=== PATIENT | female | born 1945 | race Two or more races ===

== ENCOUNTER 2024-05-03 20:26 | Emergency (ER) | payer MEDICARE, MEDICAID, SELFPAY ==
[2024-05-03 21:01] VITALS: BP 176/77; PULSE 77; RESP 18; TEMP 37.1; O2SAT 97
--- NOTE | 2024-05-03 21:16 | XR_ITS ---
May 03, 20242119 hrs. Indications: Onset chest pain today Findings: Normal heart size Mildly prominent central pulmonary arteries No pneumonia or pulmonary edema The osseous structures are intact Impression: Suspicious for pulmonary artery hypertension No pneumonia or pulmonary edema
--- NOTE | 2024-05-03 21:16 | XR_ITS ---
Examination: CT brain head without contrast. 2-D sagittal coronal reconstructions Date and time of exam:May 03, 2024 2147 hrs. Indications: Headache dizziness today CTDI: vol (mGy):48.3 DLP: (mGycm):1002 Technique: Multiple CT axial sections of the brain have been obtained, 5 mm slice thickness. Contrast has not been administered. 2-D sagittal, coronal reconstructions have been obtained Low dose protocols were performed. One or more of the following dose reduction techniques were used; automated exposure control, adjustment of the mA and/or KV according to patient size, use of iterative reconstruction technique. Findings: No significant ventricular enlargement. Intra-axial or extra-axial hemorrhage density is not seen. No mass effect or midline shift Basal cisterns are not remarkable. Fourth ventricle is midline. Cranial vault intact. Mild chronic pansinusitis Impression: Negative for acute hemorrhage, mass effect or midline shift
--- NOTE | 2024-05-03 21:17 | PD.EDRME ---
Rapid Medical Screening Exam RME Arrival date/time: 05/03/24 20:26 78-year-old female past medical history of hypertension presents emergency department complaining of dizziness and cough. Chief Complaint: Dizziness Time Seen by Provider: 05/03/24 21:07 Vital signs: Vital Signs Temperature 98.7 F 05/03/24 21:01 Pulse Rate 77 05/03/24 21:01 Respiratory Rate 18 05/03/24 21:01 Blood Pressure 176/77 H 05/03/24 21:01 Pulse Oximetry (%) 97 05/03/24 21:01 Oxygen Delivery Method Room Air 05/03/24 21:01 Vital signs reviewed by provider: Yes
[2024-05-03 21:49] LABS: Basophils % (Auto) 0 % (0-2.5); Eosinophils # (Auto) 0.2 Thou/mm3 (0.0-0.5); Eosinophils % (Auto) 2 % (0-10); Hematocrit 37.4 % (36.0-46.0); Hemoglobin 12.7 g/dL (12.0-16.0); Immature Granulocytes % (Auto) 0 % (0-0); Immature Granulocytes Auto 0.04 Thou/mm3 (0.00-0.00); Lymphocytes # (Auto) 1.6 Thou/mm3 (1.0-4.8); Lymphocytes % (Auto) 16 % (10-50); Mean Corpuscular Hemoglobin 28.9 pg (25.0-35.0); Mean Corpuscular Volume 85 fL (80-100); Monocytes # (Auto) 0.9 Thou/mm3 (0.0-0.8); Monocytes % (Auto) 9 % (0-12); Neutrophils # (Auto) 7.2 Thou/mm3 (1.8-7.7); Neutrophils % (Auto) 72 % (37-80); Nucleated Red Blood Cell % 0 /100 WBC (0); Platelet Count 264 Thou/mm3 (140-440); White Blood Count 10.1 Thou/mm3 (3.6-11.0)
[2024-05-03 22:02] LABS: B-Type Natriuretic Peptide 43 pg/mL (0-100)
[2024-05-03 22:03] LABS: Alanine Aminotransferase 17 U/L (10-49); Albumin, Serum 4.5 gm/dL (3.4-4.8); Albumin/Globulin Ratio 1.6 (1.2-2.2); Alkaline Phosphatase 119 U/L (46-116); Anion Gap 7 (7-16); Aspartate Amino Transferase 28 U/L (0-34); BUN/Creatinine Ratio 15 Ratio (12-20); Bilirubin,Total 0.7 mg/dL (0.3-1.2); Blood Urea Nitrogen 17 mg/dL (9-23); Calcium 9.7 mg/dL (8.3-10.6); Calcium (Corrected) 9.7 mg/dL (8.5-10.1); Carbon Dioxide 26.4 mMol/L (20.0-31.0); Chloride 96 mMol/L (98-107); Creatinine (Component) 1.1 mg/dL (0.6-1.3); Globulin 2.9 gm/dL (2.3-3.5); Glucose 99 mg/dL (74-106); Magnesium 1.5 mg/dL (1.6-2.6); Osmolality,Calculated 260 (275-295); Potassium 4.5 mMol/L (3.4-5.1); Sodium 129 mMol/L (136-145); Total Protein 7.4 gm/dL (5.7-8.2); eGFR 51 See Note
--- NOTE | 2024-05-03 22:51 | EDNOTE_ITS ---
ED Dizzyness RME/HPI General Chief Complaint: Dizziness Stated Complaint: BLOOD PRESSURE HIGH, DIZZY, H/A Time Seen by Provider: 05/03/24 21:07 Arrival date/time: 05/03/24 20:26 RME / HPI RME / HPI Narrative: 05/03/24 20:26 78-year-old female past medical history of hypertension presents emergency department complaining of dizziness and cough. -------- Dr. Miranda?s Main ED Evaluation: 78yo female with a history of HTN BIB her daughter presents to the ED for a chief complaint of elevated blood pressure. Daughter states she checked the patient's blood pressure and was noted to be 220/90 and was concerned, so she brought her in for evaluation. Patient states she initially had a headache, but reports it has since resolved. Patient denies any chest pain, shortness of breath, N/V or any other associated symptoms. Related Data Home Medications ?Medication ?Instructions ?Recorded ?Confirmed cholesterol PO QDAY ##0 10/01/14 lisinopril 20 mg tablet 20 mg PO QDAY #0 tabs Previous Rx's ?Medication ?Instructions ?Recorded HCTZ/TRIAMTERENE (DYAZIDE 25/37.5) 1 cap PO QAM #30 ca ps 10/01/14 aspirin 81 mg chewable tablet 81 mg PO QDAY ##100 09/21 04/07 metoprolol succinate 25 mg 25 mg PO QDAY ##30 10/01/14 tablet,extended release 24 hr (Toprol XL) nitroglycerin 0.4 mg sublingual 0.4 mg SL Q5MIN PRN CH EST PAIN 10/01/14 tablet (Nitrostat) #100 tabs magnesium oxide 400 mg (241.3 mg 400 mg PO BID 3 days #6 tabs 05/04/24 magnesium) tablet Allergies Allergy/AdvReac Type Severity Reaction Status Date / Time Penicillins Allergy Unknown Unverified 09/30/14 05:05 Review of Systems Review of Systems Systems Reviewed: All systems reviewed, normal except as documented Past Medical History Social History SMOKING STATUS: Never smoker ED Exam Narrative Physical exam: GENERAL APPEARANCE: alert and oriented x 4, well-developed, well-nourished, no acute distress VITALS: All vitals were reviewed and the pulse ox is 97% on room air, which is normal according to my interpretation. HEENT: Normocephalic, atraumatic; pupils equal, round, reactive to light; EOMI; mucous membranes pink, moist; oropharynx clear NECK: Supple LUNGS: CTABL; no wheezes, no rales, no rhonchi HEART: Regular rate, regular rhythm; normal S1, S2; no murmurs ABDOMEN: non distended; normal BS; soft, no tenderness, no guarding, no rebound; no masses, no organomegaly, no hernia BACK: no CVA tenderness EXTREMITIES: atraumatic; no edema NEUROLOGIC: awake; alert and oriented x4; cranial nerves II-XII grossly intact; no focal sensory or motor deficits PSYCHIATRIC: appropriate mood and affect SKIN: warm, dry, normal color; no rashes Course Course Course Narrative: CXR is ordered for determining the etiology of elevated blood pressure. Quality Measures none Orders Category Date Time Status EKG (ED ONLY) *Do not use* NOW Care 05/03/24 21:[address] head/brain wo con Stat Exams 05/03/24 21:16 Completed EKG (ED Only) Stat Exams 05/03/24 21:16 Ordered XR chest 2V Stat Exams 05/03/24 21:16 Completed BNP [B-Type Natriuretic Peptide] Stat Lab 05/03/24 21:25 Completed CBC Stat Lab 05/03/24 21:25 Completed Comprehensive Metabolic Panel Stat Lab 05/03/24 21:25 Completed Mag [Magnesium] Stat Lab 05/03/24 21:25 Completed Troponin I Stat Lab 05/03/24 21:25 Completed Vital Signs Vital signs: Vital Signs Temperature 98.7 F 05/03/24 21:01 Pulse Rate 77 05/03/24 21:01 Respiratory Rate 18 05/03/24 21:01 Blood Pressure 176/77 H 05/03/24 21:01 Pulse Oximetry (%) 97 05/03/24 21:01 Oxygen Delivery Method Room Air 05/03/24 21:01 Dizziness MDM Narrative MDM Narrative:: Scribe Attestation: 05/03/24 Donna Lopez am scribing for and in the presence of Dr. Miranda. Patient data External records reviewed:: [facility] previous records (Per chart review, patient has no previous ED visits or admissions to this facility.) Clinical information provided by:: patient Social determinants that could affect healthcare access:: none Patient has the following chronic illnesses:: HTN How is presenting disease/condition affected by chronic disease/condition?: caused by Evaluation data The following diagnostics were reviewed and interpreted by me:: lab results Lab and/or radiology exams considered but not ordered:: none Interpretation Summary: Bedside COVID and Influenza are negative, CBC is normal, troponin is normal, BNP is normal, according to my interpretation. EKG done at 2116, NSR, rate of 72, normal axis, no ectopy, no acute ischemia, according to my interpretation. ------ [facility] Report Signed Patient: SUNITA LITTLEJOHN LoggedIn. Record#: [id number] Birthdate: 1945 Age/Sex: 78 / F Location: [facility] Attending Dr: Ordering Physician: Lucrecia ZAMUDIO)Ab Date of Service: 05/03/24 Procedure(s): XR chest 2V Accession Number(s): [id number] cc: Josue Perry MD; Lucrecia ZAMUDIO)Ab~ May 03, 2024 2120 hrs. Indications: Onset chest pain today Findings: Normal heart size Mildly prominent central pulmonary arteries No pneumonia or pulmonary edema The osseous structures are intact Impression: Suspicious for pulmonary artery hypertension No pneumonia or pulmonary edema Dictated By: Josue Perry MD Signed By: <Electronically signed by Josue Perry MD in [place]> 05/03/24 2141 [facility] Report Signed Patient: SUNITA LITTLEJOHN LoggedIn. Record#: [id number] Birthdate: 1945 Age/Sex: 78 / F Location: [facility] Attending Dr: Ordering Physician: Ab Jones (FNP) Date of Service: 05/03/24 Procedure(s): CT head/brain wo con Accession Number(s): [id number] cc: Josue Perry MD; NO PRIMARY/FAMILY,PHYSICIAN; Lucrecia ZAMUDIO), Ab SCHNEIDER~ Examination: CT brain head without contrast. 2-D sagittal coronal reconstructions Date and time of exam:May 03, 2024 2147 hrs. Indications: Headache dizziness today CTDI: vol (mGy):48.3 DLP: (mGycm):1002 Technique: Multiple CT axial sections of the brain have been obtained, 5 mm slice thickness. Contrast has not been administered. 2-D sagittal, coronal reconstructions have been obtained Low dose protocols were performed. One or more of the following dose reduction techniques were used; automated exposure control, adjustment of the mA and/or KV according to patient size, use of iterative reconstruction technique. Findings: No significant ventricular enlargement. Intra-axial or extra-axial hemorrhage density is not seen. No mass effect or midline shift Basal cisterns are not remarkable. Fourth ventricle is midline. Cranial vault intact. Mild chronic pansinusitis Impression: Negative for acute hemorrhage, mass effect or midline shift Dictated By: Josue Perry MD Signed By: <Electronically signed by Josue Perry MD in [place]> 05/03/24 2208 Medications / Prescriptions Medications or Prescriptions considered but not ordered:: none Medication administrations:: see above Consultations Consultation(s) initiated? (list below): No Diagnosis Dizziness Differential Diagnosis: other (hypertensive headache, subarachnoid bleed, ICH, tension headache, essential hypertension, hypertensive urgency) Most likely diagnosis given after review of the tests above:: see below Admission Indicated Admission indicated?: not indicated Admission Request Was there a request for admission?: No Disposition Plan Disposition Plan: Discharge Discharge Attestation Discharge Attestation: The patient and all family members were given an opportunity to ask questions and understood the discharge instructions. Discharge instructions specifically effects, indications for sooner follow up or return to the emergency department, and the expected course of current diagnosis. Patient condition: Stable Discharge Plan Plan Patient Disposition: HOME (Self Care) Disposition Comment: Stable for discharge Patient condition on transfer: Stable Prescriptions/Referrals Prescriptions/Med Rec: New magnesium oxide 400 mg (241.3 mg magnesium) tablet 400 mg PO BID 3 Days Qty: 6 0RF No Action lisinopril 20 MG tablet 20 mg PO QDAY Qty: 0 cholesterol PO QDAY Qty: 0 nitroglycerin [Nitrostat] 0.4 MG tablet, sublingual 0.4 mg SL Q5MIN PRN (Reason: CHEST PAIN) Qty: 100 0RF aspirin 81 MG tablet,chewable 81 mg PO QDAY Qty: 100 0RF metoprolol succinate [Toprol XL] 25 MG tablet extended release 24 hr 25 mg PO QDAY Qty: 30 0RF HCTZ/TRIAMTERENE (DYAZIDE 25/37.5) 1 CAP capsule 1 cap PO QAM Qty: 30 0RF Referrals: [facility], [facility] [Outside] - In 1 week Problem List Clinical Impression: Hypertension, Headache due to hypertension Patient/Caregiver Discharge Instructions Discharge Activity: activity as tolerated Education Materials: Controlling High Blood Pressure, Discharge Instructions for ..., Eating Heart-Healthy Foods, Blood Pressure Check Steps Additional Instructions: The patient follow-up with your primary care doctor within the next several days to discuss your high blood pressure medications. You may need an adjustment or change in the medication. Please remember to return to the emergency department if you have any worsening or any further medical problems we will help you. Your magnesium level is a little bit low. There is 1 medication waiting for you at your pharmacy. This is magnesium oxide. Please take 1 tab twice a day for the next 3 days Print Language: Pakistani Stand Alone Forms: [employer] Award Info., Patient Portal Info Letter
[2024-05-03 23:10] VITALS: BP 162/74; PULSE 71; RESP 19; TEMP 36.7; O2SAT 100
[2024-05-03 23:12] VITALS: BMI 35.9
--- NOTE | 2024-05-03 23:20 | PC.NURSE ---
Pt. presents with c/o HTN. Daughter in law states she had a systolic of 220 at home but now systolic is 162/74. Pt. states a CABRERA 8/10 and dizziness and states that she has had high blood pressure before and has the same symptoms today. Pt is taking Hydrochlorothiazide, Atorvastatin and Losartan at home and has been on meds for 1 mo but states she has been taking all three in [place] where they are made into one pill.
--- NOTE | 2024-05-03 23:26 | PC.NURSE ---
Pt. states having a cough x 5 days with no other symptoms.
[2024-05-04 01:12] VITALS: BP 179/79; PULSE 76; RESP 18; O2SAT 98
== END 2024-05-04 01:12 | disposition home or self-care (01) ==
PROVIDERS: Emergency Provider Emergency Medicine
DX: I10 Essential (primary) hypertension (principal); R51.9 Headache, unspecified; R05.9 Cough, unspecified
CPT/HCPCS: 36415; 70450; 71046; 80053; 81001; 83735; 83880; 84484; 85025; 87400; 87811; 93005; 99283